=== PATIENT | female | born 1965 | race Caucasian/White ===

== ENCOUNTER 2017-05-16 15:00 | Outpatient (RCR) | payer BC | END 2017-06-02 | LOC: PT 15:00 | PROVIDERS: ATTEND Podiatrist Foot & Ankle Surgery | DX: M79.671 Pain in right foot (principal); M76.61 Achilles tendinitis, right leg; M25.671 Stiffness of right ankle, not elsewhere classified; M25.771 Osteophyte, right ankle; R26.2 Difficulty in walking, not elsewhere classified; M62.81 Muscle weakness (generalized) ==

== ENCOUNTER → 2017-08-05 | Outpatient (CLI) | payer BC ==
--- NOTE | 2017-08-13 08:31 | Diagnostic Imaging Report ---
#[id number] - MGSCRNBI #BILATERAL DIGITAL SCREENING MAMMOGRAM WITH CAD: 08/05/2017 CLINICAL: Routine screening. Comparison is made to exams dated: 12/21/2015 mammogram and 01/01/2014 mammogram - [facility]. Current study contains 4 films. There are scattered fibroglandular elements in both breasts. Current study was also evaluated with a Computer Aided Detection (CAD) system. There are benign calcifications in both breasts. There also is a benign intramammary node in the left breast. No significant masses, calcifications, or other findings are seen in either breast. There has been no significant interval change. IMPRESSION: BENIGN There is no mammographic evidence of malignancy. A 1 year screening mammogram is recommended. The patient will be notified by letter of the results. Troy krause/nicholas:08/12/2017 14:58:38 Maintenance Department Technician: Amie PARRA)(Alex), [facility] letter sent: Compared to Prior B9 Mammogram BI-RADS: 2 Benign
== END ==
LOC: MAMMO 11:49
PROVIDERS: ATTEND Internal Medicine
DX: Z12.31 Encounter for screening mammogram for malignant neoplasm of breast (principal)
CPT/HCPCS: 77067

== ENCOUNTER → 2017-11-26 | Outpatient (CLI) | payer BC ==
[2017-11-26 07:20] LABS: BASOPHILS % 0.5 % (0.0-1.0); EOSINOPHILS # (AUTO) 0.1 (0.0-0.4); EOSINOPHILS % 1.5 % (0.0-6.0); HEMATOCRIT 39.6 % (34.2-44.1); HEMOGLOBIN 13.5 g/dL (12.0-16.0); LYMPHOCYTES # (AUTO) 1.9 (1.0-3.2); LYMPHOCYTES % 25.7 % (18.0-39.1); MEAN CORPUSCULAR HEMOGLOBIN 30.9 pg (28-32); MEAN CORPUSCULAR HGB CONC 34.1 g/dL (31-35); MEAN CORPUSCULAR VOLUME 90.6 fL (81-99); MONOCYTES # (AUTO) 0.6 (0.2-0.8); MONOCYTES % 7.7 % (4.4-11.3); NEUTROPHILS # (AUTO) 4.9 (2.1-6.9); NEUTROPHILS % 64.5 % (38.7-80.0); PLATELET COUNT 259 x10e3/uL (140-360); RED BLOOD COUNT 4.37 x10e6/uL (3.6-5.1); RED CELL DISTRIBUTION WIDTH 12.1 % (11.7-14.4)
[2017-11-26 07:39] LABS: ALANINE AMINOTRANSFERASE 10 IU/L (0-55); ALBUMIN/GLOBULIN RATIO 1.2 (0.8-2.0); ALKALINE PHOSPHATASE 49 IU/L (40-150); ANION GAP 13.7 mmol/L (8-16); BLOOD UREA NITROGEN 14 mg/dL (7-26); BUN/CREATININE RATIO 15 (6-25); CALCIUM 9.8 mg/dL (8.4-10.2); CARBON DIOXIDE 28 mmol/L (22-29); CHLORIDE 102 mmol/L (98-107); CHOLESTEROL 187 MD/DL (0-199); CREATININE, SERUM 0.95 mg/dL (0.57-1.11); EST GLOMERULAR FILTRATION RATE > 60 ML/MIN (60-); GLUCOSE 88 mg/dL (74-118); HDL CHOLESTEROL 63 MG/DL (40-60); LDL CHOLESTEROL 112 MG/DL (60-130); POTASSIUM 3.7 mmol/L (3.5-5.1); SODIUM 140 mmol/L (136-145); TRIGLYCERIDES 62 MG/DL (0-149)
[2017-11-26 07:55] LABS: ERYTHROCYTE SEDIMENTATION RATE 28 mm/hr (0-20)
[2017-11-26 08:00] LABS: THYROID STIMULATING HORMONE 1.807 uIU/mL (0.350-4.940)
== END ==
LOC: LAB 07:01
PROVIDERS: ATTEND Internal Medicine
DX: R53.83 Other fatigue (principal); M60.9 Myositis, unspecified; E78.2 Mixed hyperlipidemia; E55.9 Vitamin D deficiency, unspecified
CPT/HCPCS: 36415; 80053; 80061; 82306; 84436; 84443; 84480; 85025; 85651; 86039; 86140; 86431

== ENCOUNTER → 2018-06-19 | Outpatient (CLI) | payer BC ==
--- NOTE | 2018-06-19 16:14 | Diagnostic Imaging Report ---
Exam: Pelvic ultrasound. History: Heavy menstrual cycle. Comparison: None. Findings: Transabdominal and endovaginal sonographic evaluation of the pelvis. Uterus measures 10.6 x 6.4 x 7.5 cm. The endometrial stripe measures 0.5 cm. Nabothian cyst is noted. There is a 2.2 cm heterogeneously hypoechoic subserosal lesion. There is an intramural lesion measuring up to 1.0 cm containing coarse calcifications, likely representing fibroid. The right ovary measures 5.9 x 3.0 x 3.2 cm. Vascular flow is demonstrated in the right ovary. There is a mildly complex predominately anechoic cyst within the right ovary measuring up to 5.2 x 2.3 x 2.5 cm with a thin septation and no doppler flow. Left ovary is not visualized due to overlying bowel gas. No evidence of free fluid. Impression: Fibroid uterus with subserosal fibroid measuring up to 2.2 cm and partially calcified intramural fibroid measuring up to 1.0 cm. Mildly complex right adnexal cyst measuring up to 5.2 cm in this pre-menopausal patient. Follow-up ultrasound is suggested in 6-8 weeks. Left ovary is not visualized due to overlying bowel gas. Signed by: Dr. Thomas Schaefer MD on 06/19/2018 4:11 PM
== END ==
LOC: US 14:18
PROVIDERS: ATTEND Obstetrics & Gynecology
DX: N93.9 Abnormal uterine and vaginal bleeding, unspecified (principal)
CPT/HCPCS: 76830

== ENCOUNTER → 2018-11-27 | Outpatient (CLI) | payer BC | LOC: MAMMO 09:47 | PROVIDERS: ATTEND Internal Medicine | DX: Z12.31 Encounter for screening mammogram for malignant neoplasm of breast (principal) | CPT/HCPCS: 77067 ==

== ENCOUNTER → 2019-02-13 | Outpatient (CLI) | payer BC ==
--- NOTE | 2019-02-18 18:27 | Polysomnography ---
DATE OF STUDY: REFERRING PHYSICIAN: Larry Lawrence MD STUDY: Polysomnography report. HISTORY OF PRESENT ILLNESS: The patient reports snoring and difficulty maintaining sleep. The patient has excessive fatigue and sleepiness during the day. INTERPRETATION: The patient came to the laboratory for a diagnostic study. The patient slept for 312 minutes out of 412.5 minutes. The sleep efficiency was 75.6%. The sleep onset latency was 22 minutes and 34 seconds. The latency to REM was 338.5 minutes. The patient spent 19.5 minutes in REM sleep, which was 6.3% of the night. The [place] sleep score was 7. The minimal saturation was 93%. The minimal heart rate was 51 beats per minute. There were no arrhythmias. The patient had three apneic events and two hypopneic events. The apnea-hypopnea index was one event per hour. IMPRESSION: 1. No evidence of obstructive sleep apnea during the study. 2. Periodic limb movement associated with sleep. RECOMMENDATIONS: 1. Consider ENT evaluation for snoring. 2. Review the patient's medications for any medicines, which may be contributing to excessive daytime fatigue and somnolence. 3. Achieve and maintain an ideal body weight. MD BETSEY Feldman/HEAVEN /[id number]
== END ==
LOC: SLEEP 20:00
PROVIDERS: ATTEND Internal Medicine
DX: G47.33 Obstructive sleep apnea (adult) (pediatric) (principal)
CPT/HCPCS: 95810

== ENCOUNTER 2019-03-23 04:09 | Inpatient (IN) | payer BC ==
[~2019-03-23] VITALS: Ht 157.5 cm; Wt 91.6 kg
--- OUTSIDE RECORDS SUMMARY | 2019-03-23 04:11 | XMS REPORT ---
Author Author [facility] Address Unknown Phone Unavailable Care Team Providers Care Radial Arm Saw Operator Name Role Phone GABRIELE SANTIAGO Unavailable Unavailable KATE YADAV Unavailable Unavailable Simran YADAV Unavailable Unavailable Problems This patient has no known problems. Allergies, Adverse Reactions, Alerts This patient has no known allergies or adverse reactions. Medications This patient has no known medications. Results Test Description Test Time Test Comments Text Results Atomic Results Result Comments MAMMOGRAPHY DIGITAL SCR BILAT 2018-11-27 12:36:00 [facility] [address] [address] Patient Name: TANO ABRAMS MR #: [id number] : 1965 Age/Sex: 53/F Req #: [id number] Adm Physician: Ordered by: GABRIELE SANTIAGO MD Report #: [id number] Location: MAMMO Room/Bed: Procedure: [id number] MG/MAMMOGRAPHY DIGITAL SCR BILAT Exam Date: 11/27/18 Exam Time: 1009 REPORT STATUS: Signed #[id number] - MGSCRBIL #BILATERAL DIGITAL SCREENING MAMMOGRAM WITH CAD: 11/27/2018 CLINICAL: Routine screening. Comparison is made to exams dated: 08/05/2017 mammogram - [facility] and 12/21/2015 mammogram - [facility]. Current study contains 4 films. There are scattered fibroglandular elements in both breasts. Current study was also evaluated with a Computer Aided Detection (CAD) system. There are benign calcifications in both breasts. There also is a benign intramammary node in the left breast. No significant masses, calcifications, or other findings are seen in either breast. IMPRESSION: BENIGN There is no mammographic evidence of malignancy. A 1 year screening mammogram is recommended. The patient will be notified by letter of the results. JAE CARTER M.D. ct/nichloas:12/12/2018 11:40:29 Demolition Expert: Amie PARRA)(Alex), [facility] letter sent: Compared to Prior B9 Mammogram BI-RADS: 2 Benign Dictated By: JAE CARTER MD 1140 Transcribed By: NICHOLAS on 12/12/18 1140 COPY TO: GABRIELE SANTIAGO MD TISSUE EXAM 2018-08-25 11:19:00 Surgical Pathology Report Case: [id number] Authorizing Provider: Emily Yadav MD Collected: 08/22/2018 0817 Ord ering Location: [facility] PERI[facility] Received: 08/22/2018 1132 SERVICES Pathologist: Jojo Bill MD Specimen: Uterus w/Bilateral Fallopian Tubes, Ovaries, & Cervix UTERUS WITH BILATERAL FALLOPIAN TUBES, OVARIES AND CERVIX, HYSTERECTOMY AND BILATERAL SALPINGO-OOPHORECTOMY: - ENDOMETRIUM: - ENDOMETRIAL POLYP - WEAKLY PROLIFERATIVE ENDOMETRIUM WITH FOCAL TUBAL METAPLASIA - MYOMETRIUM: - LEIOMYOMATA - ADENOMYOSIS - CERVIX: - ECTOCERVIX WITH FOCAL HYPERPARAKERATOSIS - BILATERAL OVARIES: - CORPUS LUTEAL CYSTS - EPITHELIAL INCLUSION CYSTS - BILATERAL FALLOPIAN TUBES: - PARATUBAL CYSTS Signing Pathologist Direct Phone Line: [phone] signed by Jojo Bill MD on 08/25/2018 at 11:19 AMMG/[id number], menorrhagia, dyspareunia, pelvic painUterus with bilateral fallopian tubes, ovaries and cervix The specimen is received in fixative and designated as "uterus with bilateral fallopian tubes", consists of a hysterectomy specimen (180 gm, 12.0 cm superior to inferior, 7.5 cm cornu to cornu and 7.0 cm anterior to posterior) with detached unoriented fallopian tubes with fimbriated ends (4.5 cm in length and 0.6 cm in diameter, each) and enlarged ovaries (5.0 x 3.0 x 1.4 cm and 3.5 x 3.5 x 2.0 cm). The cervix is whi te-rendon and smooth with no discrete lesions identified. The endometrium is pink- red and is 0.1 cm in greatest thickness. A possible polyp is identified towards the posterior fundus that is 0.5 x 0.3 x 0.3 cm. Sectioning through the myometrium reveals multiple intramural nodules ranging in size from 0.5 to 1.5 cm in greatest dimension. The remainder of the myometrium is pink-rendon and trabeculated and is 2.5 cm in greatest thickness. Sectioning through bilateral fallopian tubes does not reveal any abnormalities. The ovaries are cystic with parenchymal cysts ranging from 2.5 to 3.0 cm in greatest dimension.Section code: A1, anterior cervix; A2, posterior cervix; A3, anterior endomyometrium; A4, posterior endomyometrium to contain possible polyp; A5-A7, sales representative womens health sections of Intramural nodules; A8, fallopian tube with fimbriated end entirely submitted; A9, sales representative wom[employer] cross sections of fallopian tube; A10-A11, sales representative wom[employer] sections of ovary; A12, opposite fimbriated end entirely submitted; A13, sales representative womens [employer] cross sections of fallopian tube; A15, sales representative womens health sections of opposite ovary. MG/ewPerformed [facility], Department of Pathology, [address] [place] [id number], [facility], Department of Pathology, [address] [place] [address], [facility], [facility] of [facility], [address] [place] [address], HCG, SERUM, QUALITATIVE 2018-08-18 14:22:00 TEST SERUM (BEAKER) (test kewr=510) Negative BASIC METABOLIC [id number] 14:11:00* Test Item Value Reference Range Comments SODIUM (BEAKER) (test tnab=792) 139 meq/L 135-148 POTASSIUM (BEAKER) (test hlfq=217) 4.0 meq/L 3.6-5.5 CHLORIDE (BEAKER) (test wphf=143) 103 meq/L 98-106 CO2 (BEAKER) (test rqwf=190) 25 meq/L 20-29 BLOOD UREA NITROGEN (BEAKER) (test wwcw=045) 11 mg/dL 10-26 CREATININE (BEAKER) (test eumk=385) 0.82 mg/dL 0.50-1.20 GLUCOSE RANDOM (BEAKER) (test vijj=946) 79 mg/dL 70-110 CALCIUM (BEAKER) (test sjfx=284) 9.8 mg/dL 8.5-10.5 EGFR (BEAKER) (test dvrc=6185) 73 mL/min/1.73 sq m ESTIMATED GFR IS NOT ACCURATE CREATININE CLEARANCE IN PREDICTING GLOMERULAR FILTRATION RATE. ESTIMATED GFR IS NOT APPLICABLE FOR DIALYSIS PATIENTS. CBC W/PLT COUNT & AUTO [id number] 13:59:00* Test Item Value Reference Range Comments WHITE BLOOD CELL COUNT (BEAKER) (test yapt=745) 10.8 K/ L 4.0-10.0 RED BLOOD CELL COUNT (BEAKER) (test tvql=611) 4.22 M/ L 4.00-5.00 HEMOGLOBIN (BEAKER) (test wftm=242) 12.8 GM/DL 12.0-15.5 HEMATOCRIT (BEAKER) (test lfgc=331) 39.3 % 36.0-46.0 MEAN CORPUSCULAR VOLUME (BEAKER) (test aitd=573) 93.1 fL 82.0-99.0 MEAN CORPUSCULAR HEMOGLOBIN (BEAKER) (test qrdt=140) 30.3 pg 27.0-33.0 MEAN CORPUSCULAR HEMOGLOBIN CONC (BEAKER) (test pghh=244) 32.6 GM/DL 32.0-36.0 RED CELL DISTRIBUTION WIDTH (BEAKER) (test xgfx=271) 13.5 % 12.0-15.0 PLATELET COUNT (BEAKER) (test kigb=378) 282 K/CU MM 150-430 MEAN PLATELET VOLUME (BEAKER) (test lgfi=892) 10.5 fL 6.0-11.5 NUCLEATED RED BLOOD CELLS (BEAKER) (test ddev=506) 0 /100 WBC 0-0 NEUTROPHILS RELATIVE PERCENT (BEAKER) (test xzuo=912) 69 % LYMPHOCYTES RELATIVE PERCENT (BEAKER) (test dugf=046) 24 % MONOCYTES RELATIVE PERCENT (BEAKER) (test ylcb=561) 6 % EOSINOPHILS RELATIVE PERCENT (BEAKER) (test tbmr=609) 1 % BASOPHILS RELATIVE PERCENT (BEAKER) (test qhmu=048) 1 % NEUTROPHILS ABSOLUTE COUNT (BEAKER) (test wlnt=815) 7.39 K/ L 1.80-8.00 LYMPHOCYTES ABSOLUTE COUNT (BEAKER) (test khwc=112) 2.59 K/ L 1.48-4.50 MONOCYTES ABSOLUTE COUNT (BEAKER) (test cime=466) 0.62 K/ L 0.00-1.30 EOSINOPHILS ABSOLUTE COUNT (BEAKER) (test oyej=053) 0.09 K/ L 0.00-0.50 BASOPHILS ABSOLUTE COUNT (BEAKER) (test eyxo=063) 0.06 K/ L 0.00-0.20 IMMATURE GRANULOCYTES-RELATIVE PERCENT (BEAKER) (test wwlu=1264) 0 % 0-0 US [id number] 16:02:00 [address] [address] Patient Name: TANO ABRAMS MR #: [id number] : 1965 Age/Sex: 52/F Req #: [id number] Adm Physician: Ordered by: EMILY YADAV M.D. Report #: [id number] Location: Room/Bed: Procedure: [id number] U S/US TRANSVAGINAL Exam Date: 06/19/18 Exam Time: 143 7 REPORT STATUS: Signed Exam: Pe lvic ultrasound. History: Heavy menstrual cycle. Comparison: None. Findings: Transabdominal and endovaginal sonographic evaluation of the pelvi s. Uterus measures 10.6 x 6.4 x 7.5 cm. The endometrial stripe measures 0.5 cm . Nabothian cyst is noted. There is a 2.2 cm heterogeneously hypoechoic subs erosal lesion. There is an intramural lesion measuring up to 1.0 cm containing coarse calcifications, likely representing fibroid. The right ovary measu res 5.9 x 3.0 x 3.2 cm. Vascular flow is demonstrated in the right ovary. Ther e is a mildly complex predominately anechoic cyst within the right ovary measu ring up to 5.2 x 2.3 x 2.5 cm with a thin septation and no doppler flow. Left ovary is not visualized due to overlying bowel gas. No evidence of free fl uid. Impression: Fibroid uterus with subserosal fibroid measuring up to 2 .2 cm and partially calcified intramural fibroid measuring up to 1.0 cm. Mildly complex right adnexal cyst measuring up to 5.2 cm in this pre-menopausal patient. Follow-up ultrasound is suggested in 6-8 weeks. Left ovary is n ot visualized due to overlying bowel gas. Signed by: Dr. Kartik Marrufo MD on 06/19/2018 4:11 PM Dictated By: KARTIK MARRUFO MD 161 Transcribed By: JAKUB on 06/19/18 1611 C OPY TO: EMILY YADAV M.D. MAMMOGRAM DIGITAL SCR [address] [address] Patient Name: TANO ABRAMS MR #: [id number] : 1965 Age/Sex: 52/F Req #: [id number] Adm Physician: Ordered by: GABRIELE SANTIAGO MD Report #: [id number] Location: [facility] Room/Bed: Procedure: [id number] MG/MAMMOGRAM DIGITAL SCR BI Ex am Date: 08/05/17 Exam Time: 1200 REPORT STATUS : Signed #[id number] - MGSCRNBI #BILATERAL DIGITAL SCREENING MAMMOGRA M WITH CAD: 08/05/2017 CLINICAL: Routine screening. Comparison is made to exams dated: 12/21/2015 mammogram and 01/01/2014 mammogram - [facility]. Current study contains 4 films. There are scattered fib roglandular elements in both breasts. Current study was also evaluated with a Computer Aided Detection (CAD) system. There are benign calcifications in both breasts. There also is a benign intramammary node in the left breast. No significant masses, calcifications, or other findings are seen in either b reast. There has been no significant interval change. IMPRESSION: BENIG N There is no mammographic evidence of malignancy. A 1 year screening mammogr am is recommended. The patient will be notified by letter of the results. Troy krause/nicholas:08/12/2017 14:58:38 Im aging Technologist: Amie Silva RT(R)(M), [facility] letter sent: Compared to Prior B9 Mammogram BI-RADS: 2 Benign Dictated By: TROY NINO DO 14 58 Transcribed By: NICHOLAS on 08/12/17 7741 COPY TO: GABRIELE SANTIAGO MD MAMMOGRAPHY DIGITAL SCR BILAT [address] [address] Patient Name: TANO ABRAMS MR #: [id number] : 1965 Age/Sex: 52/F Req #: [id number] [facility] Physician: Ordered by: GABRIELE SANTIAGO MD Report #: [id number] Location: MAMMO Room/Bed: Procedure: [id number] MG/MAMMOGRAPHY DIGITAL SCR BILA T Exam Date: 08/15/17 Exam Time: 1150 REPORT S TATUS: Signed #[id number] - MGSCRBIL #BILATERAL DIGITAL SCREENING JOSE ROXANNA WITH CAD: 08/05/2017 CLINICAL: Routine screening. Comparison is ma de to exams dated: 12/21/2015 mammogram and 01/01/2014 mammogram - [facility]. Current study contains 4 films. There are scattere d fibroglandular elements in both breasts. Current study was also evaluated with a Computer Aided Detection (CAD) system. There are benign calcification s in both breasts. There also is a benign intramammary node in the left angeli st. No significant masses, calcifications, or other findings are seen in eit her breast. There has been no significant interval change. IMPRESSION: BENIGN There is no mammographic evidence of malignancy. A 1 year screening ma mmogram is recommended. The patient will be notified by letter of the results . Troy krause/nicholas:08/12/2017 14:58:38 Demolition Expert: Amie SUN(R)(M), [facility] nt letter sent: Compared to Prior B9 Mammogram BI-RADS: 2 Benign Dic tated By: TROY NINO DO 1454 COPY TO: GABRIELE SANTIAGO
[2019-03-23] MEDS ORDERED: KETOROLAC TROMETHAMINE 30 MG/ML VIAL IV STA (04:13)
[2019-03-23] MEDS ORDERED: ONDANSETRON HCL INJ 2MG/ML 2ML 2 MG/ML VIAL IV STA (04:13)
[2019-03-23] MEDS ORDERED: ONDANSETRON HCL INJ 2MG/ML 2ML 2 MG/ML VIAL ONE (04:23)
[2019-03-23] MEDS ORDERED: KETOROLAC TROMETHAMINE 30 MG/ML VIAL ONE (04:23)
[2019-03-23 04:29] LABS: BASOPHILS # (AUTO) 0.1 (0.0-0.1); BASOPHILS % 0.7 % (0.0-1.0); EOSINOPHILS # (AUTO) 0.1 (0.0-0.4); EOSINOPHILS % 0.9 % (0.0-6.0); HEMATOCRIT 42.6 % (34.2-44.1); HEMOGLOBIN 13.7 g/dL (12.0-16.0); LYMPHOCYTES # (AUTO) 2.9 (1.0-3.2); LYMPHOCYTES % 38.5 % (18.0-39.1); MEAN CORPUSCULAR HEMOGLOBIN 29.5 pg (28-32); MEAN CORPUSCULAR HGB CONC 32.2 g/dL (31-35); MEAN CORPUSCULAR VOLUME 91.6 fL (81-99); MONOCYTES # (AUTO) 0.7 (0.2-0.8); MONOCYTES % 8.7 % (4.4-11.3); NEUTROPHILS # (AUTO) 3.8 (2.1-6.9); NEUTROPHILS % 50.9 % (38.7-80.0); PLATELET COUNT 288 x10e3/uL (140-360); RED BLOOD COUNT 4.65 x10e6/uL (3.6-5.1); RED CELL DISTRIBUTION WIDTH 13.2 % (11.7-14.4)
[2019-03-23 04:33] LABS: BILIRUBIN,URINE NEGATIVE (NEGATIVE); CLARITY,URINE CLEAR (CLEAR); COLOR,URINE YELLOW (YELLOW); KETONES,URINE NEGATIVE (NEGATIVE); LEUKOCYTE ESTERASE ,URINE TRACE (NEGATIVE); NITRITE,URINE NEGATIVE (NEGATIVE); PROTEIN,URINE DIPSTICK NEGATIVE (NEGATIVE); URINE UROBILINOGEN 0.2 mg/dL (0.2 - 1)
[2019-03-23 04:45] LABS: AMYLASE 48 U/L (25-125); LIPASE 840 U/L (8-78)
[2019-03-23 04:46] LABS: BACTERIA,URINE FEW /HPF; EPITHELIAL CELLS,URINE FEW /LPF; RBC,URINE 0-5 /HPF (0-5)
[2019-03-23 04:47] LABS: RENAL EPITHELIAL CELLS,URINE FEW; TRANSITIONAL EPI CELLS,URINE FEW
[2019-03-23 04:49] LABS: ALANINE AMINOTRANSFERASE 12 IU/L (0-55); ALBUMIN 4.1 g/dL (3.5-5.0); ALBUMIN/GLOBULIN RATIO 1.2 (0.8-2.0); ALKALINE PHOSPHATASE 47 IU/L (40-150); ANION GAP 16.8 mmol/L (8-16); BLOOD UREA NITROGEN 18 mg/dL (7-26); BUN/CREATININE RATIO 20 (6-25); CALCIUM 10.8 mg/dL (8.4-10.2); CARBON DIOXIDE 25 mmol/L (22-29); CHLORIDE 99 mmol/L (98-107); CREATININE, SERUM 0.91 mg/dL (0.57-1.11); EST GLOMERULAR FILTRATION RATE > 60 ML/MIN (60-); GLUCOSE 94 mg/dL (74-118); POTASSIUM 3.8 mmol/L (3.5-5.1); SODIUM 137 mmol/L (136-145)
[2019-03-23] MEDS ORDERED: HYDROMORPHONE 1MG/1ML INJ IV STA (04:59)
[2019-03-23] MEDS ORDERED: CEFTRIAXONE SOD 1 GM/NS 50 ML 50 ML IV ONE (05:00)
[2019-03-23] MEDS ORDERED: SODIUM CHLORIDE 0.9% 1000ML 1,000 ML IV SCH (05:00)
--- NOTE | 2019-03-23 05:00 | Diagnostic Imaging Report ---
EXAM: CT Abdomen and Pelvis WITHOUT contrast INDICATION: Right flank pain ^stone protocol ^[id number] ^0435 ^Y COMPARISON: None. TECHNIQUE: Abdomen and pelvis were scanned utilizing a multidetector helical scanner from the lung base to the pubic symphysis without administration of IV contrast. Absence of intravenous contrast decreases sensitivity for detection of focal lesions and vascular pathology. Coronal and sagittal reformations were obtained. Routine protocol was performed. IV CONTRAST: None ORAL CONTRAST: None COMPLICATIONS: None RADIATION DOSE: Total DLP: 539.52 mGy*cm Estimated effective dose: (DLP x 0.015 x size factor) mSv CTDIvol has been reviewed. It is below the limits set by the Radiation Protocol Committee (RPC). FINDINGS: LINES and TUBES: Gastric band with reservoir in subcutaneous anterior left lower abdomen. LOWER THORAX: Mild dependent atelectasis. HEPATOBILIARY: Unenhanced liver is unremarkable. No biliary ductal dilation. GALLBLADDER: No radio-opaque stones or sludge. No wall thickening. SPLEEN: No splenomegaly. PANCREAS: No focal masses or ductal dilatation. ADRENALS: No adrenal nodules KIDNEYS/URETERS: No hydronephrosis. Limited for evaluation of renal parenchyma without intravenous contrast. No stones. GI TRACT: No abnormal distention, wall thickening, or evidence of bowel obstruction. Appendix is normal. Gastric lapband in place. Stool throughout the colon, could represent constipation. PELVIC ORGANS/BLADDER: Unremarkable. Bladder is collapsed, limiting evaluation. LYMPH NODES: No lymphadenopathy. VESSELS: Unremarkable. PERITONEUM / RETROPERITONEUM: No free air or fluid. BONES: Right iliac sclerotic focus, likely a bone island. Grade 1 retrolisthesis of L5 in relation to L4. SOFT TISSUES: Unremarkable. IMPRESSION: 1. No nephrolithiasis or evidence of obstructive urolithiasis. Signed by: Dr. Sascha Billings MD on 03/23/2019 4:57 AM
[2019-03-23] MEDS: CEFTRIAXONE SOD 1 GM/NS 50 ML 50 ML IV SCH (05:23)
[2019-03-23] MEDS ORDERED: SODIUM CHLORIDE 0.9% 1000ML 1,000 ML IV STA (05:24)
[2019-03-23] MEDS ORDERED: PREGABALIN75 MG PO (05:28)
[2019-03-23] MEDS ORDERED: ROPINIROLE HCL0.5 MG PO (05:28)
[2019-03-23] MEDS ORDERED: ZOLPIDEM TARTRA10 MG PO (05:28)
[2019-03-23] MEDS ORDERED: SUMATRIPTAN SU100 MG PO (05:28)
[2019-03-23] MEDS ORDERED: ATIVAN1 MG PO (05:28)
[2019-03-23] MEDS ORDERED: NAPROXEN500 MG PO (05:28)
[2019-03-23] MEDS ORDERED: DULOXETINE HCL60 MG PO (05:28)
--- NOTE | 2019-03-23 05:44 | NUR ---
SPO2 DROPPED TO 89% ON ROOM AIR AFTER DILAUDID, PLACED ON 2L NC, SPO2 UP TO 98%. AWAKE ALERT SKIN W/D RESP NON LAB. NAD NOTED. DR RODRIGUEZ AWARE.
[2019-03-23] MEDS: HYDROMORPHONE 1MG/1ML INJ IV PRN ×4 (09:01→23:45)
[2019-03-23] MEDS: ONDANSETRON HCL INJ 2MG/ML 2ML 2 MG/ML VIAL IV PRN ×5 (09:08→23:45)
[2019-03-23] MEDS: SODIUM CHLORIDE 0.9% 1000ML 1,000 ML IV SCH ×4 (09:09→23:52)
--- NOTE | 2019-03-23 09:15 | History and Physical ---
REASON FOR ADMISSION: Pancreatitis and UTI. HISTORY OF PRESENT ILLNESS: The patient is a 53-year-old lady well known to me, who presented with a 2-hour onset of severe abdominal pain, that is radiating to her back that she has never had before and she was noticed on blood tests to have evidence of pancreatitis and urinary tract infection with a CT scan being unremarkable. The patient has had history of bariatric surgery. MEDICATIONS: Please see MAR. ALLERGIES: NONE. SOCIAL HISTORY: Nonsmoker. Nondrinker. Lives at home with her . FAMILY HISTORY: Hypertension. PHYSICAL EXAMINATION: VITAL SIGNS: Temperature 98.6, pulse 90, blood pressure 136/78, sats 98%. GENERAL: No apparent distress, lying in bed. She is in a position. CARDIOVASCULAR: Regular rate and rhythm. NECK: Supple. LUNGS: Clear to auscultation bilaterally. ABDOMEN: Good bowel sounds. Soft, but she is tender in the mid epigastric area. EXTREMITIES: No clubbing or cyanosis. NEUROLOGIC: No focal. ASSESSMENT AND PLAN: 1. Abdominal pain. Continue with pain control. 2. Pancreatitis. Continue with pain control and n.p.o. status. We will do an ultrasound. 3. Urinary tract infection. We will use Rocephin and check culture. Please see hospital chart for full details. MD ALONDRA Camp/HEAVEN /[id number]
--- NOTE | 2019-03-23 13:13 | Diagnostic Imaging Report ---
EXAM: US ABDOMEN COMPLETE DATE: 03/23/2019 12:00 AM INDICATION: Pancreatitis, abdominal pain COMPARISON: CT abdomen and pelvis of 03/23/2019 TECHNIQUE: Transverse and longitudinal renteria scale and color doppler sonographic images of the upper abdomen were obtained. FINDINGS: There is no evidence of fluid or masses seen in the area of clinical concern in the right lower quadrant. LIVER 16.8 cm in the right midclavicular line. Normal echogenicity of the liver with normal contour, no masses. SPLEEN 9.9 cm in maximum diameter. Normal echogenicity, no masses. GALLBLADDER Tiny echogenic foci in the gallbladder with posterior acoustic shadowing. No gallbladder wall thickening, distension,or pericholecystic fluid. Negative reported sonographic Cevallos's sign. Gallbladder wall measures 3 mm. BILE DUCTS No intra nor extra-hepatic biliary dilation. Common bile duct measures 4 mm PANCREAS: Visualized portions are normal. RIGHT KIDNEY: 10.1 cm Echogenicity: Normal Collecting System: No hydronephrosis Stones: None Cyst/Mass: None LEFT KIDNEY: 10.1 cm Echogenicity: Normal Collecting System: No hydronephrosis Stones: None Cyst/Mass: None VESSELS: Aorta: Visualized portions are within normal size limits Inferior Vena Cava: Visualized portions are normal Main Portal Vein: 1.0 cm, normal size with hepatopetal flow. FREE FLUID: None IMPRESSION: Tiny echogenic foci in the gallbladder with posterior acoustic shadowing could represent small gallstones. No sonographic evidence of cholecystitis. Otherwise, unremarkable abdominal ultrasound. Signed by: Inessa Lala MD on 03/23/2019 1:09 PM
--- NOTE | 2019-03-23 16:39 | NUR ---
report given to dora hudson
[2019-03-24] MEDS ORDERED: ACETAMINOPHEN 1000 MG/100 ML 100 ML IV ONE (05:32)
[2019-03-24] MEDS: CEFTRIAXONE SOD 1 GM/NS 50 ML 50 ML IV SCH (05:35)
[2019-03-24] MEDS: SODIUM CHLORIDE 0.9% 1000ML 1,000 ML IV SCH ×4 (05:35→22:16)
[2019-03-24] MEDS ORDERED: SODIUM CHLORIDE 0.9% 500ML 500 ML IV STA (05:45)
[2019-03-24] MEDS ORDERED: PROMETHAZINE 25MG/ NS 50ML (IV) IV PRN (05:45)
[2019-03-24 06:25] LABS: BASOPHILS # (AUTO) 0.1 (0.0-0.1); BASOPHILS % 0.4 % (0.0-1.0); EOSINOPHILS % 0.1 % (0.0-6.0); HEMATOCRIT 37.8 % (34.2-44.1); HEMOGLOBIN 12.3 g/dL (12.0-16.0); LYMPHOCYTES # (AUTO) 1.5 (1.0-3.2); MEAN CORPUSCULAR HEMOGLOBIN 29.8 pg (28-32); MEAN CORPUSCULAR HGB CONC 32.5 g/dL (31-35); MEAN CORPUSCULAR VOLUME 91.5 fL (81-99); MONOCYTES # (AUTO) 0.9 (0.2-0.8); MONOCYTES % 7.4 % (4.4-11.3); NEUTROPHILS # (AUTO) 9.2 (2.1-6.9); NEUTROPHILS % 78.8 % (38.7-80.0); PLATELET COUNT 259 x10e3/uL (140-360); RED BLOOD COUNT 4.13 x10e6/uL (3.6-5.1); RED CELL DISTRIBUTION WIDTH 13.2 % (11.7-14.4)
--- NOTE | 2019-03-24 06:32 | Progress Note ---
DATE: SUBJECTIVE: . She continues to have her abdominal flank pain, but overall it is a little bit better, but she is now suffering from a significant migraine headache as well as dry heaves. OBJECTIVE: VITAL SIGNS: Stable. She is afebrile. GENERAL: No apparent distress, lying in bed. NECK: Supple. CARDIOVASCULAR: Regular rate and rhythm. LUNGS: Clear to auscultation bilaterally. ABDOMEN: Soft. Good bowel sounds. Slight tenderness in the mid epigastric area. No peritoneal signs. EXTREMITIES: No clubbing or cyanosis. NEUROLOGIC: Nonfocal. ASSESSMENT AND PLAN: 1. Pancreatitis. Continue with n.p.o. status and we will check her laboratory data. 2. Urinary tract infection. Continue with her antibiotics. 3. Dehydration. We will continue with fluids. We will go ahead and give her normal saline bolus. 4. Headache. We will try some IV Tylenol. 5. Nausea and vomiting. We will try some IV Phenergan since is not working. Please see also chart for full details. MD ALONDRA Camp/HEAVEN /[id number]
[2019-03-24 06:49] LABS: ALANINE AMINOTRANSFERASE 11 IU/L (0-55); ALBUMIN 3.5 g/dL (3.5-5.0); ALBUMIN/GLOBULIN RATIO 1.3 (0.8-2.0); ALKALINE PHOSPHATASE 38 IU/L (40-150); AMYLASE 44 U/L (25-125); ANION GAP 17.7 mmol/L (8-16); BLOOD UREA NITROGEN 14 mg/dL (7-26); BUN/CREATININE RATIO 19 (6-25); CALCIUM 8.9 mg/dL (8.4-10.2); CARBON DIOXIDE 20 mmol/L (22-29); CHLORIDE 106 mmol/L (98-107); CREATININE, SERUM 0.74 mg/dL (0.57-1.11); EST GLOMERULAR FILTRATION RATE > 60 ML/MIN (60-); GLUCOSE 89 mg/dL (74-118); LIPASE 18 U/L (8-78); POTASSIUM 3.7 mmol/L (3.5-5.1); SODIUM 140 mmol/L (136-145)
[2019-03-24] MEDS: ONDANSETRON HCL INJ 2MG/ML 2ML 2 MG/ML VIAL IV PRN ×3 (09:55→22:17)
[2019-03-24] MEDS: HYDROMORPHONE 1MG/1ML INJ IV PRN ×3 (09:55→22:22)
--- NOTE | 2019-03-24 11:00 | NUR ---
RECD PT FROM ER VIA W/C IV TO LT FA 20 GAUGE,C/O PAIN LEVEL 4 TO ABD,HOB ELEVATED ,CALL BED IN REACH NO DISTESS NOTED
[2019-03-24 11:56] VITALS: BP 97/51
[2019-03-24] MEDS: ACETAMINOPHEN 1000 MG/100 ML IV PRN ×2 (13:20→19:45)
--- NOTE | 2019-03-24 13:41 | NUR ---
C/O PAIN REQUESTED TYLENOL MEDICATED
--- NOTE | 2019-03-24 15:05 | NUR ---
Visit made by the Spiritual Care Department Pastoral Visitor, Shania Brady. PV provided pastoral presence, prayer, hospitality, and supportive listening. Pastoral Visitor informed pt/family of the scope of Digital Media Representative Services and availability. JESSICA SOLOMON [employer] Spiritual Care Department O: [phone] Pager: [phone] ([phone] number calling from)
[2019-03-24 15:37] VITALS: BP 106/52
--- NOTE | 2019-03-24 19:00 | NUR ---
Received patient awake on bed, with ongoing IV fluids, call light within easy reach, advised to call for assistance anytime when needed, will continue to monitor
[2019-03-24 20:00] VITALS: BP 103/60
[2019-03-24 21:00] VITALS: BP 103/60
[2019-03-25] VITALS (8 sets, daily range): BP systolic 112–120; BP diastolic 53–65
[2019-03-25] MEDS: ONDANSETRON HCL INJ 2MG/ML 2ML 2 MG/ML VIAL IV PRN ×3 (04:04→18:13)
[2019-03-25] MEDS: HYDROMORPHONE 1MG/1ML INJ IV PRN ×2 (04:04→18:13)
[2019-03-25] MEDS: SODIUM CHLORIDE 0.9% 1000ML 1,000 ML IV SCH ×3 (04:07→21:43)
[2019-03-25] MEDS: CEFTRIAXONE SOD 1 GM/NS 50 ML 50 ML IV SCH (05:10)
[2019-03-25] MEDS ORDERED: KETOROLAC TROMETHAMINE 30 MG/ML VIAL IV STA (05:40)
[2019-03-25 06:23] LABS: BASOPHILS # (AUTO) 0.1 (0.0-0.1); BASOPHILS % 0.6 % (0.0-1.0); EOSINOPHILS % 0.3 % (0.0-6.0); HEMATOCRIT 37.6 % (34.2-44.1); HEMOGLOBIN 11.8 g/dL (12.0-16.0); LYMPHOCYTES # (AUTO) 2.3 (1.0-3.2); LYMPHOCYTES % 25.8 % (18.0-39.1); MEAN CORPUSCULAR HEMOGLOBIN 29.7 pg (28-32); MEAN CORPUSCULAR HGB CONC 31.4 g/dL (31-35); MEAN CORPUSCULAR VOLUME 94.7 fL (81-99); MONOCYTES # (AUTO) 0.6 (0.2-0.8); MONOCYTES % 6.9 % (4.4-11.3); NEUTROPHILS # (AUTO) 5.8 (2.1-6.9); NEUTROPHILS % 66.2 % (38.7-80.0); PLATELET COUNT 212 x10e3/uL (140-360); RED BLOOD COUNT 3.97 x10e6/uL (3.6-5.1); RED CELL DISTRIBUTION WIDTH 13.3 % (11.7-14.4)
[2019-03-25 06:38] LABS: ALANINE AMINOTRANSFERASE 11 IU/L (0-55); ALBUMIN 3.2 g/dL (3.5-5.0); ALBUMIN/GLOBULIN RATIO 1.1 (0.8-2.0); ALKALINE PHOSPHATASE 34 IU/L (40-150); AMYLASE 37 U/L (25-125); BLOOD UREA NITROGEN 10 mg/dL (7-26); BUN/CREATININE RATIO 13 (6-25); CALCIUM 8.6 mg/dL (8.4-10.2); CARBON DIOXIDE 20 mmol/L (22-29); CHLORIDE 109 mmol/L (98-107); CREATININE, SERUM 0.77 mg/dL (0.57-1.11); EST GLOMERULAR FILTRATION RATE > 60 ML/MIN (60-); GLUCOSE 85 mg/dL (74-118); LIPASE 11 U/L (8-78); SODIUM 140 mmol/L (136-145)
--- NOTE | 2019-03-25 06:54 | NUR ---
RECEIVED REPORT FROM OFF GOING NURSE. WALKING ROUNDS DONE. PATIENT IS RESTING IN BED. NO ACUTE DISTRESS NOTED. CALL LIGHT WITHIN REACH. BED IN THE LOWEST POSITION.
[2019-03-25] MEDS ORDERED: BISACODYL 5 MG TAB EC PO ONE (14:30)
[2019-03-25] MEDS ORDERED: ACETAMINOPHEN 1000 MG/100 ML IV PRN (14:36)
[2019-03-25] MEDS ORDERED: PROMETHAZINE 25MG/SOD CHL 0.9% 50 ML IV PRN (14:45)
--- NOTE | 2019-03-25 18:02 | NUR ---
Nutrition Screen Note RD Recommendation for Physician: -Advance to low fat diet when medically appropriate Plan of Care: RD following, monitoring for tolerance and adequacy Nutrition reason for involvement: diagnosis pancreatitis Primary Diagnose(s): pancreatitis and UTI PMH: bariatric surgery Ht: 62 in Wt: 202 lb BMI: 36.94 kg/m2 IBW:[address] Assessment: (03/25/19) Chart reviewed. Labs and meds reviewed. Pt is a 53 year old female admitted with pancreatitis and UTI. Pt stated her appetite has been down since Saturday and was eating <50% of meals (3 days). Pt is currently on a full liquid diet and per chart consumed 75% of liquids this morning. No weight loss reported and pt reports she typically weighs 199 lbs. Pt currently has a wt of 202 lbs in chart. Pt reports some nausea. No chewing/swallowing issues. Will continue to monitor. Current Diet: Full Liquid Diet Malnutrition Evaluation (03/25/19) The patient does not meet criteria for a specified degree of malnutrition at this time. Will re-evaluate at follow-up as appropriate. Energy intake: Pt reports eating <50% of meals since Saturday (3 days). Weight loss: No weight loss reported Fat loss: no loss identified Muscle loss: no loss identified Supporting Evidence: Fluid accumulation: unable to evaluate Functional Status: unable to evaluate Diet Education Needs Assessment: Diet education not indicated at this time Nutrition Care Level: Low Signed: Jessica Barahona, RD, LD
--- NOTE | 2019-03-25 19:40 | NUR ---
PT IS RESTING IN BED. RESPIRATION IS EVEN AND UNLABORED, NO DISTRESS NOTED. BED IN THE LOWEST POSITION, LOCKED, AND CALL LIGHT WITHIN REACH. WILL CONTINUE TO MONITOR.
--- NOTE | 2019-03-25 19:42 | NUR ---
REPORT GIVEN TO ONCOMING NURSE. WALKING ROUNDS DONE. PATIENT IS RESTING IN BED. NO ACUTE DISTRESS NOTED. FAMILY AT BEDSIDE. CALL LIGHT WITHIN REACH. BED IN THE LOWEST POSITION.
[2019-03-26] VITALS (7 sets, daily range): BP systolic 110–139; BP diastolic 59–75
[2019-03-26] MEDS: CEFTRIAXONE SOD 1 GM/NS 50 ML 50 ML IV SCH (04:23)
[2019-03-26] MEDS: ONDANSETRON HCL INJ 2MG/ML 2ML 2 MG/ML VIAL IV PRN ×2 (04:39→14:15)
[2019-03-26] MEDS: HYDROMORPHONE 1MG/1ML INJ IV PRN ×2 (04:40→14:15)
[2019-03-26] MEDS: KETOROLAC TROMETHAMINE 30 MG/ML VIAL IM SCH ×2 (06:12→14:15)
[2019-03-26] MEDS: PANTOPRAZOLE 40 MG 10ML VIAL IV SCH ×2 (09:28→16:37)
[2019-03-26] MEDS ORDERED: BISACODYL 5 MG TAB EC PO SCH (10:00)
[2019-03-26] MEDS ORDERED: POLYETHYLENE GLYCOL 3350 17 GM PACK PO SCH (10:00)
[2019-03-26] MEDS: SODIUM CHLORIDE 0.9% 1000ML 1,000 ML IV SCH ×2 (11:00→22:10)
[2019-03-26] MEDS: DOCUSATE SODIUM 100 MG CAP PO SCH (16:37)
--- NOTE | 2019-03-26 19:10 | NUR ---
REPORT GIVEN TO ONCOMING NURSE. WALKING ROUNDS DONE. PATIENT IS RESTING IN BED. NO ACUTE DISTRESS NOTED. CALL LIGHT WITHIN REACH. BED IN THE LOWEST POSITION.
[2019-03-26] MEDS: KETOROLAC TROMETHAMINE 30 MG/ML VIAL IV SCH (22:03)
[2019-03-27] VITALS: BP 106/55
[2019-03-27 04:00] VITALS: BP 119/60
[2019-03-27] MEDS: CEFTRIAXONE SOD 1 GM/NS 50 ML 50 ML IV SCH (05:25)
[2019-03-27] MEDS: KETOROLAC TROMETHAMINE 30 MG/ML VIAL IV SCH (05:52)
[2019-03-27] MEDS ORDERED: ACETAMINOPHEN 325 MG TAB PO PRN (06:00)
--- NOTE | 2019-03-27 06:33 | NUR ---
PT IS COMPLAINING OF A HEADACHE. PER DR SANTIAGO PT CAN HAVE TYLENOL 650MG Q6H PO PRN. WILL CONTINUE TO MONITOR.
--- NOTE | 2019-03-27 07:02 | NUR ---
received shift change report from caustic [employer] shift superintendent RN, pt awake, alert, oriented, states pain is improved, will continue to assess.
[2019-03-27 08:00] VITALS: BP 116/66
[2019-03-27 08:52] VITALS: BP 119/60
[2019-03-27] MEDS: DOCUSATE SODIUM 100 MG CAP PO SCH (10:06)
[2019-03-27] MEDS: PANTOPRAZOLE 40 MG 10ML VIAL IV SCH (10:08)
[2019-03-27 12:00] VITALS: BP 119/72
--- NOTE | 2019-03-27 12:30 | NUR ---
tolerated diet well,no c/o nausea or pain
--- NOTE | 2019-03-27 15:50 | NUR ---
pt discharged home ,iv dcd without redness or swelling.transported to [facility] via w/c
[2019-03-27 16:00] VITALS: BP 122/71
--- NOTE | 2019-03-28 05:37 | Discharge Summary ---
DISCHARGE DIAGNOSIS: Pancreatitis. HISTORY OF PRESENT ILLNESS AND HOSPITAL COURSE: See hospital chart for full details. The patient is a lady, well known to me, who presented with acute abdominal pain and flank pain, where she was noticed to have acute pancreatitis on laboratory data. CT scan was unremarkable. She was brought and placed n.p.o., IV antiemetics and IV pain medications as well as some evidence of urinary tract infection, she was placed on IV antibiotics daily. She made significant improvements. At the time of discharge, she was able to ambulate well. She did have bowel movements and she is able to tolerate p.o. medications well as well as food without any increased abdominal pain. The likelihood that the pancreatitis is a recent change to ketogenic diet. The patient is to follow up with me in 1 to 2 weeks. Please see hospital chart for full details. MD ALONDRA Camp/HEAVEN /[id number]
== END 2019-03-27 15:46 | disposition home or self-care (01) | DRG 439 ==
LOC: ER 04:09 → ERHOLD 05:17 → MED/SURG3 03-24 11:25
PROVIDERS: ADMIT Internal Medicine; ATTEND Internal Medicine
DX: K85.90 Acute pancreatitis without necrosis or infection, unspecified (principal); N39.0 Urinary tract infection, site not specified; E86.0 Dehydration; R51 Headache
CPT/HCPCS: 36415; 74176; 76700; 80053; 81001; 82150; 83690; 85025; 96374; 96375; 99284; J0696; J1170; J1885; J2405; J2550; J7030; J7040

== ENCOUNTER → 2019-05-13 | Day surgery (SDC) | payer BC ==
[2019-05-12 13:44] LABS: BASOPHILS # (AUTO) 0.1 (0.0-0.1); BASOPHILS % 0.6 % (0.0-1.0); EOSINOPHILS # (AUTO) 0.1 (0.0-0.4); EOSINOPHILS % 0.9 % (0.0-6.0); HEMATOCRIT 42.7 % (34.2-44.1); HEMOGLOBIN 14.1 g/dL (12.0-16.0); LYMPHOCYTES # (AUTO) 2.4 (1.0-3.2); LYMPHOCYTES % 29.2 % (18.0-39.1); MEAN CORPUSCULAR HEMOGLOBIN 30.3 pg (28-32); MEAN CORPUSCULAR VOLUME 91.6 fL (81-99); MONOCYTES # (AUTO) 0.5 (0.2-0.8); MONOCYTES % 6.1 % (4.4-11.3); NEUTROPHILS # (AUTO) 5.1 (2.1-6.9); NEUTROPHILS % 63.1 % (38.7-80.0); PLATELET COUNT 251 x10e3/uL (140-360); RED BLOOD COUNT 4.66 x10e6/uL (3.6-5.1); RED CELL DISTRIBUTION WIDTH 13.7 % (11.7-14.4)
[2019-05-12 14:06] LABS: ALBUMIN 4.3 g/dL (3.5-5.0); ALBUMIN/GLOBULIN RATIO 1.3 (0.8-2.0); CALCIUM 10.1 mg/dL (8.4-10.2); CREATININE, SERUM 0.99 mg/dL (0.57-1.11)
[2019-05-12 14:13] LABS: CLARITY,URINE CLEAR (CLEAR); COLOR,URINE YELLOW (YELLOW); LEUKOCYTE ESTERASE ,URINE NEGATIVE (NEGATIVE); NITRITE,URINE NEGATIVE (NEGATIVE); PROTEIN,URINE DIPSTICK NEGATIVE (NEGATIVE)
[2019-05-12 14:14] LABS: BILIRUBIN,URINE NEGATIVE (NEGATIVE); KETONES,URINE NEGATIVE (NEGATIVE); URINE UROBILINOGEN 0.2 mg/dL (0.2 - 1)
[~2019-05-13] MED LIST: ACETAMINOPHEN 1000 MG/100 ML IV ONE; ATIVAN1 MG PO; BUPIVACAINE 0.25%/EPI 30ML SDV INJ ONE; DEXAMETHASONE SOD PHOS INJ 4 MG/ML VIAL ONE; DULOXETINE HCL60 MG PO; FENTANYL CITRATE/PF 100MCG/2 ML INJ ONE; GLYCOPYRROLATE INJ 0.2 MG/ML VIAL ONE; HYDROMORPHONE 1MG/1ML INJ ONE; IOPAMIDOL 300MG/ML 50ML INFUS..BTL IV ONE; KETOROLAC TROMETHAMINE 30 MG/ML VIAL ONE; LIDOCAINE HCL 2% LOCAL INJ 5 ML SDV VIAL INJ ONE; METOCLOPRAMIDE HCL 10 MG/2ML VIAL ONE; MIDAZOLAM HCL 2 MG/2 ML VIAL ONE; NAPROXEN500 MG PO; NEOSTIGMINE 1 MG/ML 10ML VIAL ONE; ONDANSETRON HCL INJ 2MG/ML 2ML 2 MG/ML VIAL ONE; PREGABALIN75 MG PO; PROPOFOL IV EMULSION 10 MG/ML 20 ML VIAL ONE; ROCURONIUM BROMIDE 10 MG/ML 5ML VIAL ONE; ROPINIROLE HCL0.5 MG PO; SCOPOLAMINE 1.5 MG PATCH ONE; SEVOFLURANE INHAL SOLN 250 ML PEN BTL ONE; SUMATRIPTAN SU100 MG PO; ZOLPIDEM TARTRA10 MG PO
--- NOTE | 2019-05-13 14:21 | Diagnostic Imaging Report ---
EXAM: CHOLANGIOGRAM INTROP DATE: 05/13/2019 12:00 AM IMPRESSION: 6 radiographic images were obtained of the right upper abdomen. There is opacification of the common bile duct. There is mild tapering of the distal common bile duct at the level of the ampulla. Contrast material readily passes into the small bowel. There is no evidence for obstruction or filling defect to suggest choledocholithiasis. Signed by: Dr. Norberto Iglesias MD on 05/13/2019 2:18 PM
[2019-05-13 16:10] VITALS: BP 120/67
--- NOTE | 2019-05-13 20:48 | Operative Report ---
DATE OF PROCEDURE: 05/13/2019 SURGEON: Marcelino Ovalles MD PREOPERATIVE DIAGNOSES: 1. Cholecystitis. 2. Cholelithiasis. 3. History of pancreatitis, rule out common bile duct stones. POSTOPERATIVE DIAGNOSES: 1. Cholecystitis. 2. Cholelithiasis. 3. No common bile duct stones. OPERATION PERFORMED: Laparoscopic cholecystectomy with intraoperative cholangiograms. ASSISTANTS: 1. Kurtis Ovalles M.D. 2. MODESTA Zavala. ANESTHESIA: General. COMPLICATIONS: None. ESTIMATED BLOOD LOSS: Minimal. DESCRIPTION OF PROCEDURE: With the patient lying in bed in the supine position under good general endotracheal anesthesia, the abdomen was prepped with Betadine solution and draped in the usual manner. A Veress needle was introduced into the right upper quadrant and pneumoperitoneum was established without any difficulty. A 5 mm trocar was placed in the right subcostal region and a 5 mm video laparoscope was placed into the intra-abdominal cavity. Video laparoscopy at this point revealed no adhesions to the subumbilical area from the patient's previous surgery. An 11 mm trocar was then placed through the umbilicus and a 10 mm video laparoscope was placed into the intra-abdominal cavity. Under direct vision, two more 5 mm trocars were placed in the right subcostal region and laparoscopy at this point revealed a normal appealing liver. There were some adhesions to the upper abdomen that were taken down. The gallbladder was distended and there were some adhesions to the lower part of the gallbladder. Rest of the abdominal exploration was within normal limits. The peritoneum was then opened at the neck of the gallbladder and the cystic duct was identified. The cystic duct was then followed to its junction with the common duct. The cystic duct was then circumferentially dissected and a clip was placed at the neck of the gallbladder. The cystic duct was then opened and a cholangiocath was introduced. The patient had a valve that made it hard to introduce a cholangiocath so we had to make the opening a little closer to the common duct. Once this was done, we were able to get the cholangiocath into the duct, but the only way that we could get it in was to actually inflate the balloon in the proximal common duct. The cystic duct cholangiogram was then performed by introducing half-strength dye under fluoroscopic guidance into the biliary tree. This showed free flow of dye into the duodenum. The proximal bile duct could not be visualized again because the balloon was occluding the proximal bile duct, but there were no stones in the distal duct. There was some tapering of the distal duct likely secondary to her previous bout of pancreatitis. The cholangiocath was then removed. The cystic duct was then doubly clipped and divided. Cystic artery was similarly doubly clipped and divided. The gallbladder was then slowly and carefully taken off the liver bed using the cautery scissors and perfect hemostasis was ascertained. The gallbladder was then grasped through the umbilical port and removed without any difficulty. Video laparoscopy was then again carried out. The liver bed was found to be perfectly dry. All the excess fluid was aspirated. The pneumoperitoneum was evacuated and all the trocars were removed under direct vision. The midline fascia at the umbilicus was then closed with a [id number] of 0-Vicryl. All layers were infiltrated on the way out with solution of 0.25% Marcaine. Subcutaneous tissue was approximated with 3-0 Vicryl and the skin was closed with subcuticular 5-0 Vicryl. Benzoin, Steri-Strips, and Band-Aids were applied. The sponge, lap, and needle count was correct. The patient tolerated the procedure well and returned to the recovery room in stable condition. MD BONG Fishman/HEAVEN /[id number]
== END | disposition home or self-care (01) ==
LOC: OR 10:17
PROVIDERS: ATTEND Surgery
DX: K80.10 Calculus of gallbladder with chronic cholecystitis without obstruction (principal); K85.90 Acute pancreatitis without necrosis or infection, unspecified; Z01.810 Encounter for preprocedural cardiovascular examination; Z01.812 Encounter for preprocedural laboratory examination; Z88.5 Allergy status to narcotic agent; K21.9 Gastro-esophageal reflux disease without esophagitis; Z98.84 Bariatric surgery status; J45.909 Unspecified asthma, uncomplicated; F41.9 Anxiety disorder, unspecified
CPT/HCPCS: 36415; 47563; 74300; 80053; 81003; 85025; 88304; 93005; C1766; J0131; J1100; J1170; J1885; J2001; J2250; J2405; J2704; J2710; J2765; J3010; Q9967

== ENCOUNTER → 2020-03-21 | Outpatient (CLI) | payer BC ==
[~2020-03-21] MED LIST changes: -ACETAMINOPHEN 1000 MG/100 ML IV ONE; -BUPIVACAINE 0.25%/EPI 30ML SDV INJ ONE; -DEXAMETHASONE SOD PHOS INJ 4 MG/ML VIAL ONE; -FENTANYL CITRATE/PF 100MCG/2 ML INJ ONE; -GLYCOPYRROLATE INJ 0.2 MG/ML VIAL ONE; -HYDROMORPHONE 1MG/1ML INJ ONE; -IOPAMIDOL 300MG/ML 50ML INFUS..BTL IV ONE; -KETOROLAC TROMETHAMINE 30 MG/ML VIAL ONE; -LIDOCAINE HCL 2% LOCAL INJ 5 ML SDV VIAL INJ ONE; -METOCLOPRAMIDE HCL 10 MG/2ML VIAL ONE; -MIDAZOLAM HCL 2 MG/2 ML VIAL ONE; -NEOSTIGMINE 1 MG/ML 10ML VIAL ONE; -ONDANSETRON HCL INJ 2MG/ML 2ML 2 MG/ML VIAL ONE; -PROPOFOL IV EMULSION 10 MG/ML 20 ML VIAL ONE; -ROCURONIUM BROMIDE 10 MG/ML 5ML VIAL ONE; -SCOPOLAMINE 1.5 MG PATCH ONE; -SEVOFLURANE INHAL SOLN 250 ML PEN BTL ONE
== END ==
LOC: MAMMO 11:34
PROVIDERS: ATTEND Internal Medicine
DX: Z12.31 Encounter for screening mammogram for malignant neoplasm of breast (principal)
CPT/HCPCS: 77067

== ENCOUNTER 2020-05-16 13:54 | Outpatient (RCR) | payer BC, OTHER | END 2020-06-02 | LOC: PT 13:54 | PROVIDERS: ATTEND Podiatrist Foot & Ankle Surgery | DX: M76.62 Achilles tendinitis, left leg (principal); M62.81 Muscle weakness (generalized) ==

== ENCOUNTER → 2020-06-07 | Outpatient (CLI) | payer OTHER ==
[~2020-06-07] MED LIST changes: +COVID-19 VACC, MRNA(MODERNA)/PF 100 MCG/0.5 ML VIAL IM ONE
== END ==
LOC: VACCPMC 08:00
DX: Z23 Encounter for immunization (principal); Z20.822 Contact with and (suspected) exposure to COVID-19

== ENCOUNTER → 2020-07-08 | Outpatient (CLI) | payer OTHER | END | DRG 951 | LOC: VACCPMC 07:46 | DX: Z23 Encounter for immunization (principal); Z20.822 Contact with and (suspected) exposure to COVID-19 | CPT/HCPCS: 0012A; 91301 ==

== ENCOUNTER → 2021-10-11 | Day surgery (SDC) | payer BC ==
[~2021-10-11] MED LIST changes: -COVID-19 VACC, MRNA(MODERNA)/PF 100 MCG/0.5 ML VIAL IM ONE; +FENTANYL CITRATE/PF 100MCG/2 ML INJ ONE; +HYDROXYCHLOROQ200 MG PO; +HYOSCYAMINE SULFATE 0.5 MG/ML INJ ONE; +LIDOCAINE HCL 2% LOCAL INJ 5 ML SDV VIAL INJ ONE; +LYRICA75 MG PO; +MIDAZOLAM HCL 5 MG/ML VIAL ONE; +MYSOLINE50 MG PO; +PREDNISONE5 MG PO; +PROPOFOL IV EMULSION 10 MG/ML 20 ML VIAL ONE; +TERBINAFINE HC250 MG PO; +TRIAMTERENE-HCTZ1 EA PO
[2021-10-11 08:50] VITALS: BP 112/63
== END | disposition home or self-care (01) ==
LOC: OR 05:59
PROVIDERS: ATTEND Internal Medicine Gastroenterology
DX: Z12.11 Encounter for screening for malignant neoplasm of colon (principal); K63.5 Polyp of colon; K64.8 Other hemorrhoids; Z71.3 Dietary counseling and surveillance; J45.909 Unspecified asthma, uncomplicated; I10 Essential (primary) hypertension; F41.9 Anxiety disorder, unspecified; Z88.6 Allergy status to analgesic agent; Z01.810 Encounter for preprocedural cardiovascular examination; Z01.812 Encounter for preprocedural laboratory examination; Z20.822 Contact with and (suspected) exposure to COVID-19; Z79.899 Other long term (current) drug therapy; Z68.41 Body mass index [BMI] 40.0-44.9, adult; Z80.0 Family history of malignant neoplasm of digestive organs
CPT/HCPCS: 45385; 88305; 93005; J1980; J2001; J2250; J2704; J3010; U0002; 45378

== ENCOUNTER → 2024-03-06 | Day surgery (SDC) | payer BC ==
[~2024-03-06] MED LIST changes: +ASPIRIN81 MG PO; +COQ-10100 MG PO; -FENTANYL CITRATE/PF 100MCG/2 ML INJ ONE; -HYOSCYAMINE SULFATE 0.5 MG/ML INJ ONE; +MAGNESIUM GLUCO27 MG PO; +METOCLOPRAMIDE HCL 10 MG/2ML VIAL ONE; +MIDAZOLAM HCL 2 MG/2 ML VIAL ONE; -MIDAZOLAM HCL 5 MG/ML VIAL ONE
[2024-03-06] MEDS: LACTATED RINGER'S 1,000 ML ONE (12:15)
[2024-03-06 13:07] VITALS: TEMP 98
[2024-03-06 13:35] VITALS: BP 118/65; PULSE 79; RESP 16; O2SAT 97
[2024-03-11 07:22] LABS: ENDOMYSIAL ANTIBODIES, IGA Negative (Negative)
[2024-03-11 08:30] LABS: IMMUNOGLOBULIN A 102 mg/dL (87-352); TISSUE TRANSGLUTAMINASE IGA AB <2 U/mL (0-3)
== END | disposition home or self-care (01) ==
LOC: OR 11:15
PROVIDERS: ATTEND Internal Medicine Gastroenterology
DX: K29.70 Gastritis, unspecified, without bleeding (principal); K22.10 Ulcer of esophagus without bleeding; K31.89 Other diseases of stomach and duodenum; K21.9 Gastro-esophageal reflux disease without esophagitis; K44.9 Diaphragmatic hernia without obstruction or gangrene; Z98.84 Bariatric surgery status; Z71.3 Dietary counseling and surveillance; D64.89 Other specified anemias; I10 Essential (primary) hypertension; Z71.89 Other specified counseling; J45.909 Unspecified asthma, uncomplicated; F41.9 Anxiety disorder, unspecified; F32.A Depression, unspecified; Z88.6 Allergy status to analgesic agent; Z79.899 Other long term (current) drug therapy; Z68.39 Body mass index [BMI] 39.0-39.9, adult; Z87.19 Personal history of other diseases of the digestive system; Z80.0 Family history of malignant neoplasm of digestive organs
CPT/HCPCS: 43239; 43450; 82784; 83516; 86256; 93005; J2003; J2250; J2470; J2704; J2765; J7121

== ENCOUNTER → 2024-03-19 | Outpatient (REF) | payer BC ==
[~2024-03-19] MED LIST changes: -LIDOCAINE HCL 2% LOCAL INJ 5 ML SDV VIAL INJ ONE; -METOCLOPRAMIDE HCL 10 MG/2ML VIAL ONE; -MIDAZOLAM HCL 2 MG/2 ML VIAL ONE; -PROPOFOL IV EMULSION 10 MG/ML 20 ML VIAL ONE
== END ==
LOC: MAMMO 14:27
PROVIDERS: ATTEND Internal Medicine
DX: Z12.31 Encounter for screening mammogram for malignant neoplasm of breast (principal)
CPT/HCPCS: 77067